=== PATIENT | male | born 2000 | race Two or more races ===

== ENCOUNTER 2021-11-22 12:32 | Outpatient (REF) | payer MEDICAID, SELFPAY ==
[2021-11-22 14:13] LABS: Binax Internal Control QC Valid; Binax Lot number: 9864; Binax Now Covid-19 Ag Positive (Negative)
== END 2021-11-22 12:33 | disposition home or self-care (01) ==
LOC: HO.LAB 12:32
PROVIDERS: Visit Provider Internal Medicine
DX: Z20.822 Contact with and (suspected) exposure to COVID-19 (principal)
CPT/HCPCS: 36415; C9803